=== PATIENT | male | born 1955 | race Caucasian/White ===

== ENCOUNTER → 2023-05-14 14:10 | Outpatient (REF) | payer OTHER, SELFPAY | LOC: HWRAD 14:10 | PROVIDERS: ATTENDING PHYSICIAN Family Medicine | DX: M25.561 Pain in right knee (principal) | CPT/HCPCS: 73564 ==

== ENCOUNTER → 2023-08-09 13:50 | Outpatient (REF) | payer OTHER, SELFPAY | LOC: MRI 3T 13:50 | PROVIDERS: ATTENDING PHYSICIAN Specialist; FAMILY PHYSICIAN Family Medicine | DX: M25.561 Pain in right knee (principal) | CPT/HCPCS: 73721 ==

== ENCOUNTER → 2023-12-28 06:22 | Day surgery (SDC) | payer OTHER, SELFPAY | LOC: GI 06:22 | PROVIDERS: ATTENDING PHYSICIAN Surgery | DX: Z12.11 Encounter for screening for malignant neoplasm of colon (principal); R19.5 Other fecal abnormalities; K64.8 Other hemorrhoids; Q43.8 Other specified congenital malformations of intestine; D12.3 Benign neoplasm of transverse colon; D12.5 Benign neoplasm of sigmoid colon; K63.5 Polyp of colon; K62.1 Rectal polyp | CPT/HCPCS: 45385; 45381; 45380; 88305 ==

== ENCOUNTER 2024-06-22 06:10 | Day surgery (SDC) | payer OTHER, SELFPAY ==
[2024-06-22 09:18] VITALS: BMI 27.1
[2024-06-22 09:19] VITALS: BP 149/90
[2024-06-22 12:43] VITALS: BP 158/77
[2024-06-22 12:45] VITALS: BP 163/84
== END 2024-06-22 13:32 | disposition home or self-care (01) ==
LOC: SDS 06:10
PROVIDERS: ATTENDING PHYSICIAN Internal Medicine Gastroenterology
DX: D12.0 Benign neoplasm of cecum (principal); D12.5 Benign neoplasm of sigmoid colon; K57.30 Diverticulosis of large intestine without perforation or abscess without bleeding; K62.1 Rectal polyp; K64.0 First degree hemorrhoids; Z86.0101 Personal history of adenomatous and serrated colon polyps
CPT/HCPCS: 45390; 45385; 88305